=== PATIENT | female | born 1990 | race Caucasian/White ===

== ENCOUNTER 2018-07-23 09:03 | Day surgery (SDC) | payer BC ==
--- NOTE | 2018-07-14 01:13 | HP ---
PREOPERATIVE HISTORY AND PHYSICAL: DATE OF OFFICE VISIT: 07/13/18 DATE OF SURGERY: 07/23/18 ATTENDING SURGEON: Dr. Maru Bocanegra.* (DICTATED BY RIC ARECHIGA) PROCEDURE: Left knee arthroscopy, anterior cruciate ligament reconstruction with autograft. CHIEF COMPLAINT: Left knee pain. HISTORY OF PRESENT ILLNESS: Syl is a 27-year-old female who presents to the clinic for left knee pain and instability due to an ACL tear. She has failed conservative measures and therefore agreed to undergo a left knee arthroscopy, anterior cruciate ligament reconstruction with autograft with Dr. Bocanegra on . PAST MEDICAL HISTORY: History of asthma, depression, anxiety, obstructive sleep apnea, migraines. PAST SURGICAL HISTORY: [place] teeth extraction. Denies prior complications with anesthesia. MEDICATIONS: 1. Melatonin 1 by mouth at bedtime. 2. Ativan 0.5 mg 1 by mouth as directed. 3. Sertraline 50 mg 1 by mouth daily. 4. Oxistat 1% as directed. 5. QNASL 80 mcg per ACT as needed. 6. Vitamin D3 one tab by mouth daily. ALLERGIES: No known drug allergies. FAMILY HISTORY: Positive for diabetes, heart disease, hypertension, thyroid disease, and breast cancer. Denies family history of DVT or PE. SOCIAL HISTORY: She lives with her roommate. 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 She reports occasional alcohol consumption. She denies tobacco use. She is right-hand dominant. REVIEW OF SYSTEMS: A 14-point review of systems was reviewed with the patient. Positive for current complaint; otherwise, negative. Denies fevers, chills, chest pain, shortness of breath, history of DVT or PE, history of bleeding disorder. PHYSICAL EXAMINATION GENERAL: A 27-year-old well-developed, well-nourished female, in no acute distress. Alert and oriented x3. VITAL SIGNS: Height 60, weight 115. Pulse 64, blood pressure 104/71, respiratory rate 16. BMI 22.5. HEENT: Normocephalic, atraumatic. PERRLA. Throat clear. NECK: Supple. PULMONARY: Lungs are clear to auscultation bilaterally. No wheezing, rhonchi, or rales. CARDIO: Regular rate and rhythm. S1, S2. No murmurs, gallops, or rubs. No edema. ABDOMEN: Positive bowel sounds, soft, nontender. NEURO: Alert and oriented x3. Cranial nerves grossly intact. Sensation intact to light touch. MUSCULOSKELETAL: Left lower extremity, skin is intact. No warmth or erythema. Nontender to palpation. Range of motion 0 to 140. Stable with varus and valgus stress. 2B Ashok. Negative posterior drawer. Calf soft, nontender. +5/5 strength to ankle dorsiflexion and plantarflexion. +2 DP pulse. Sensation intact to light touch distally. STUDIES: MRI of the left knee revealed complete ACL rupture, the menisci appear intact. IMPRESSION: Left knee ACL tear. PLAN: The patient is scheduled to undergo a left knee arthroscopy and anterior cruciate ligament reconstruction with autograft with Dr. Bocanegra on 07/23/18. She would like to undergo BTB autograft. Percocet will be used for postop pain management and Keflex for antibiotics. She is thinking about flying out a few days after surgery to [place] in which case, she will require Lovenox for 10 days postoperatively. She will follow up 10 to 14 days postop for followup and suture removal. RIC ARECHIGA [id number]/[facility] #: [id number] MTDD
[~2018-07-23 09:03] MED LIST: Buffered Lidocaine 0.9% SYRIN* 5 ML/SYR SYRINGE INTRADERM ONE; Dexamethasone IV* 4 MG/ML 1 ML (4 MG) IV SLOW PU ONE; Dexamethasone IV* 4 MG/ML 1 ML (4 MG) ONE; Famotidine IV* 10 MG/ML 2 ML (20 mg) IV ONE; Famotidine IV* 10 MG/ML 2 ML (20 mg) ONE; Lactated Ringers 1000 ML Bag* 1,000 ML IV SCH; Lidocaine 2% PF * 5 ML VIAL ONE; Midazolam* 1 MG/ML 5 ML VIAL (5 MG) ONE; Propofol* 10 MG/ML 20 ML BTL ONE; fentaNYL* 50 MCG/ML 5 ML VIAL (250 MCG VIAL) ONE
[2018-07-23] MEDS ORDERED: ceFAZolin 2 GM PREMIX in ORs 2 GM/50 ML BAG IVPB ONE (09:17)
[2018-07-23] MEDS ORDERED: Scopolamine 1.5 mg* PATCH ONE (09:41)
[2018-07-23] MEDS ORDERED: Scopolamine 1.5 mg* PATCH TRANSDERM SCH (10:00)
[2018-07-23] MEDS ORDERED: Lidocaine 1% MPF wEPI 200,000* 30 ML SDV ONE (10:27)
[2018-07-23] MEDS ORDERED: ROPIVACAINE 5 MG/ML 30 ML BTL (0.5%) ONE (10:27)
[2018-07-23] MEDS ORDERED: Ondansetron INJ* 2 MG/ML VIAL ONE (11:51)
[2018-07-23] MEDS ORDERED: oxyCODONE/Acetamin 5/325 MG* TAB PO PRN (11:53)
[2018-07-23] MEDS ORDERED: PROCHLORPERAZINE INJ 5 MG/ML 2 ML VIAL IV PRN (11:53)
[2018-07-23] MEDS ORDERED: Ketorolac INJ* 30 MG/ML 1 ML VIAL IV PRN (11:53)
[2018-07-23] MEDS ORDERED: Acetaminophen TAB* 325 MG PO PRN (11:53)
[2018-07-23] MEDS ORDERED: DiMENhydriNATE IV* 50 MG/ML VIAL IV PUSH PRN (11:53)
[2018-07-23] MEDS ORDERED: Naloxone* 0.4 MG/ML 1 ML VIAL IV PRN (11:53)
[2018-07-23] MEDS ORDERED: fentaNYL* 50 MCG/ML 2 ML VIAL (100 MCG VIAL) IV PRN (11:53)
[2018-07-23 13:10] VITALS: BP 115/69
--- NOTE | 2018-08-05 03:59 | OP ---
CC: PCP OPERATIVE REPORT: DATE OF OPERATION: 07/23/18 DATE OF : [birth year] SURGEON: Maru Bocanegra MD INCUBATOR OPERATOR: RIC Love ANESTHESIOLOGIST: Dr. Polo. PRE-OP DIAGNOSIS: Left knee grade 3 anterior cruciate ligament rupture. POST-OP DIAGNOSIS: Left knee grade 3 anterior cruciate ligament rupture with medial meniscus tear. OPERATIVE PROCEDURES: 1. Left knee arthroscopy with ACL reconstruction using BTB autograft. 2. Medial meniscus rasping. COMPLICATIONS: None. ESTIMATED BLOOD LOSS: Minimal. INDICATIONS: Syl Saavedra is a 27-year-old female who sustained an injury to her knee. Previously, she had failed conservative management and elected to proceed with surgical treatment. Risks and benefits of surgery were discussed at length including but not limited to bleeding; infection; damage to nerves, vessels, surrounding structures; wound nonhealing; persistent pain; need for further surgery; scaring; stiffness; incomplete relief of symptoms; and risks of anesthesia. DESCRIPTION OF PROCEDURE: The patient was greeted in the preoperative area by the attending surgeon. Correct extremity was marked. Consent was confirmed. The patient brought back to the operating table. She was placed in the supine position on the operating room table. She then underwent general anesthesia and LMA intubation, after which she was properly positioned in the bed. Lateral post was positioned. An unsterile tourniquet was placed high on the proximal thigh, then beanbag was placed to get the knee at 90 degrees. The left leg was then prepped and draped in the usual sterile fashion beginning with chlorhexidine, soap, scrub, and alcohol wipe and a final prep with ChloraPrep. After appropriate surgical pause indicating site, side, procedure, and administration of antibiotics; the knee was intraarticularly injected with 1% lidocaine with epi. An Esmarch was used to exsanguinate the limb and the tourniquet inflated to 250 mmHg. Total tourniquet time was 19 minutes. After which a midline incision over the patella was then made with a 15 blade. Soft tissues were carefully dissected to expose the peritenon which was identified and saved for later closure. The patellar tendon was identified. The center 10 mm was then harvested using a 10 blade. After the soft tissue was harvested , the bone block was harvested. Femoral bone block was then harvested off the patella to allow for a 9 x 23 mm bone block, distallyvthe tibial bone block was harvested for 10 x 30 mm. This was then harvested using a sagittal saw and osteotome. Once this was removed, it was prepared on the back table by the group fitness assistant department head. Meanwhile, the tourniquet was deflated. The tendon was closed with 0- Vicryl in an interrupted fashion with care to not overtighten to cause patella baja. After this was completed, attention was directed to arthroscopy. A lateral portal was made through the capsule. The scope was positioned into the joint. Joint was examined. There was no loose tear in the ACL. There was synovitis anteriorly. The anteromedial portal was made using a 18-gauge needle for localization. The shaver was used to debride the remaining capsule. The ACL was found to be scarred to the PCL. The head was found to be a grade 3 rupture. Patellofemoral joint had grade 0 to 1 changes. The medial and lateral gutters were intact without any loose debris. Medial compartment was examined, had grade 0 changes at the medial femoral condyle and medial plateau. The meniscus appeared to be intact, there was an undersurface tear posteromedially. The decision was made that it was likely stable and did not require a stitch, but we decided to rasp it to allow for healing. This was then rasped using arthroscopic meniscal rasp. Attention was then directed to the lateral compartment with the knee placed in a [id number] position. The lateral femoral condyle and lateral plateau had grade 0 changes. Lateral meniscus had no obvious fraying. It was probed and found to be intact. Attention was then directed to the ACL. The knee was placed in 90 degrees of flexion. Attention was directed to the lateral femoral wall. Patricia and biters were used to remove the ACL stump. The electrocautery device was used to expose and skeletonize the lateral wall. Once this was done, the starting awl was used to usama the provisional start point for pivot hole. This was visualized by moving the scope to the anteromedial portal. This was visualized and used as a reference point. The scope was then positioned, was brought back to the lateral portal. Attention was directed to the tibial tunnel. Biters and patricia were used to debride back the tibial ACL footprint. Once this was determined, a tip-to-tip guide was then placed, it was set to about 50 degrees. The tibial tunnel was then drilled using the guidewire in the center of the ACL footprint. Once this was confirmed, this was overdrilled with a size 10 mm low - profile reamer. All excess bone debris was removed. The tunnel was carefully rasped to offer passage of the graft. Tunnel was visualized and found to be in good position. Care was taken to prevent fluid egress. Attention was directed to the femoral tunnel. The knee was then placed in hyperflexion and the Walter and Nephew straight guides were placed in the center of the footprint using the pivot hole as the reference point. The Beath pin was then passed through the anteromedial portal in the center of the femoral footprint. This was placed through the center of the footprint out through the lateral femoral condyle, the IT band and the skin. The size 9 mm low-profile reamer was used to drill to a depth of about 25 mm. All excess bone and debris were removed. The tunnel was examined and found to have a good back wall and then properly positioned. The excess debris was removed. The tunnel was then notched. The #2 Ethibond suture was then passed through the island of the Beath pin and passed through the skin. The sutures were then passed in an anterior layered fashion through the tibial tunnel. At this point, the graft was brought back from the back table that was wrapped in a saline- soaked gauze and passed through the tibial tunnel all the way to the femoral tunnel and this was confirmed under arthroscopic and under direct visualization. Once it was well seated, tension on the femoral and tibial suture, a nitinol guide was placed in the femoral tunnel and the femoral tunnel was secured using a 7 x 20 mm screw. The graft was visualized and found to be in good position. Knee was placed to full extension, there was no evidence of impingement anteriorly. The knee was then cycled approximately 15 times to remove any creep from the graft and was found to be in good position. The scope was then brought to the joint and the joint was examined and the graft was found in good position. The knee was then taken to about 20 degrees of flexion with tension on the tibial sutures. A size 9 x 25 mm screw was used. SoftSilk screw was used to secure the tibial bone block. This was placed with excellent purchase. The knee was taken through full range of motion and Ashok was assessed and found to stable. The scope was positioned back to the joint. The graft was found to be in good position. The final images were obtained, the knee was sterilely lavaged. The wounds were copiously irrigated with sterile saline. The excess bone graft was then placed in the patellar tunnel and oversewn with 0-Vicryl. Remaining bone graft was placed in the tibial tunnel. The peritenon was then closed with 2-0 Vicryl in a running fashion. The wound was irrigated again. The skin was closed in layers with 2-0 Vicryl and 3-0 Monocryl. Sterile dressings were applied. Cryo/ Cuff and a hinged knee brace was applied, set to 0 to 90 degrees, locked in extension. She was awoken from anesthesia and transferred to PACU in stable condition. POSTOPERATIVE PLAN: She will be partial weightbearing. Range of motion 0 to 90 degrees. She with start PT this week. She will be discharged on pain medications and antibiotics. DVT prophylaxis considered but deferred due to no previous personal or family history. I will see the patient back in 6 to 8 days. [id number]/[facility] #: [id number] DRE
== END 2018-07-23 13:05 | disposition home or self-care (01) ==
LOC: OREAST 09:03
PROVIDERS: ATTEND Orthopaedic Surgery
DX: S83.512A Sprain of anterior cruciate ligament of left knee, initial encounter (principal); S83.242A Other tear of medial meniscus, current injury, left knee, initial encounter; X58.XXXA Exposure to other specified factors, initial encounter; Y92.9 Unspecified place or not applicable; J45.909 Unspecified asthma, uncomplicated; F41.8 Other specified anxiety disorders; G47.33 Obstructive sleep apnea (adult) (pediatric); G43.909 Migraine, unspecified, not intractable, without status migrainosus
CPT/HCPCS: 81025; 88304; A9270-GY; C1713; J0690; J1100; J2001; J2250; J2405; J2704; J2795; J3010

== ENCOUNTER 2019-08-06 10:29 | Day surgery (SDC) | payer BC ==
[~2019-08-06 10:29] MED LIST changes: -Buffered Lidocaine 0.9% SYRIN* 5 ML/SYR SYRINGE INTRADERM ONE; +Buffered Lidocaine 1% SYRIN* 1 ML/SYRINGE INTRADERM ONE; -Dexamethasone IV* 4 MG/ML 1 ML (4 MG) IV SLOW PU ONE; -Dexamethasone IV* 4 MG/ML 1 ML (4 MG) ONE; -Famotidine IV* 10 MG/ML 2 ML (20 mg) IV ONE; -Famotidine IV* 10 MG/ML 2 ML (20 mg) ONE; -Lidocaine 2% PF * 5 ML VIAL ONE; -Midazolam* 1 MG/ML 5 ML VIAL (5 MG) ONE; -Propofol* 10 MG/ML 20 ML BTL ONE; +ceFAZolin 2 GM PREMIX in ORs 2 GM/50 ML BAG ONE; -fentaNYL* 50 MCG/ML 5 ML VIAL (250 MCG VIAL) ONE
[2019-08-06] MEDS ORDERED: Lidocaine 2% PF * 5 ML VIAL ONE (11:03)
[2019-08-06] MEDS ORDERED: Midazolam* 1 MG/ML 2 ML VIAL (2 MG) ONE (11:03)
[2019-08-06] MEDS ORDERED: Propofol* 10 MG/ML 20 ML BTL ONE (11:03)
[2019-08-06] MEDS ORDERED: Lidocaine 1% w EPI 1:200,000* SDV 30 ML VIAL ONE (12:24)
[2019-08-06] MEDS ORDERED: Ropivacaine 0.2% * 2 MG/ML VIAL ONE (12:25)
[2019-08-06] MEDS ORDERED: Lidocaine 1% w EPI 1:100,000* MDV 20 ML VIAL ONE (12:25)
[2019-08-06] MEDS ORDERED: Phenylephrine 40 MCG/ML SYRINGE ONE (12:53)
[2019-08-06] MEDS ORDERED: fentaNYL* 50 MCG/ML 2 ML VIAL (100 MCG VIAL) ONE (13:00)
[2019-08-06] MEDS ORDERED: Ondansetron INJ* 2 MG/ML VIAL ONE (13:06)
[2019-08-06] MEDS ORDERED: Metoclopramide IV* 5 MG/ML 2 ML VIAL ONE (13:06)
[2019-08-06] MEDS ORDERED: Dexamethasone IV* 4 MG/ML 1 ML (4 MG) ONE (13:06)
[2019-08-06] MEDS ORDERED: Ketorolac INJ* 30 MG/ML 1 ML VIAL ONE (13:06)
[2019-08-06] MEDS ORDERED: Naloxone* 0.4 MG/ML 1 ML VIAL IV PRN (13:20)
[2019-08-06] MEDS ORDERED: oxyCODONE TAB* 5 MG TAB PO PRN (13:20)
[2019-08-06] MEDS ORDERED: DiMENhydriNATE IV* 50 MG/ML VIAL IV PUSH PRN (13:20)
[2019-08-06] MEDS ORDERED: fentaNYL* 50 MCG/ML 2 ML VIAL (100 MCG VIAL) IV PRN (13:20)
[2019-08-06 15:09] VITALS: BP 115/82
--- NOTE | 2019-08-08 11:52 | OP ---
DATE OF OPERATION: 08/06/19 [facility] DATE OF : [birth year] ATTENDING SURGEON: Maru Bocanegra MD SLEEP SCIENTIST: RIC Vallejo. Yasir was used for the meniscus repair portion of the case, only to help with doing the meniscus repair. ANESTHESIOLOGIST: Dr. Abreu. PRE-OP DIAGNOSES: Left knee medial meniscus tear and a previous repair to ACL reconstruction. POST-OP DIAGNOSES: Left knee medial meniscus tear and a significant synovitis and lysis of adhesions. OPERATIVE PROCEDURE: Left knee arthroscopy, possible partial meniscus repair. COMPLICATIONS: None. ESTIMATED BLOOD LOSS: Minimal. INDICATIONS: Syl Saavedra is a 28-year-old female who had a previous ACL reconstruction approximately a year ago. We did rasp her medial meniscus in the hopes that this would heal, but she had persistent symptoms and could not get back to activities. Her knee was grossly stable. The MRI confirmed that there were no issues with ACL placement. She has failed conservative management. After extensive discussion of risks and benefits of operative versus nonoperative treatment, she has elected to proceeded with surgical treatment. We did discuss that this could be a non-repairable tear and she would need a partial meniscectomy, she wanted to plan to repair it if possible. Risks include but not limited to bleeding; infection; damage to nerves, vessels, surrounding structures; wound nonhealing; persistent pain; need for surgery; scaring; stiffness; incomplete relief of symptoms; risks of anesthesia ; and risk of DVT. She has elected to proceeded. DESCRIPTION OF PROCEDURE: The patient was greeted in the preoperative area by the attending surgeon. Consent was confirmed. The patient was brought back to the operating suite. She was placed in the supine position on the operating room table and then underwent general anesthesia. An unsterile tourniquet was placed high on the proximal thigh. The lateral post was positioned. The left lower extremity was then prepped and draped in the usual sterile fashion beginning with chlorhexidine soap, scrub, and alcohol wipe and a final prep with ChloraPrep. After appropriate surgical pause indicating site, side, procedure, administration of antibiotics, the knee was intra-articularly injected with 1% lidocaine with epi. The anterolateral portal was made sharp with #11 blade. Scope was introduced into the joint. There was abundant prepatellar scar due to a previous ACL. After the anteromedial portal was placed, the electrocautery device was used to do lysis of adhesions about the prepatellar as well as the medial and lateral gutters. There was evidence of this rubbing against the medial femoral condyle. The knee cap was not even able to be visualized to start with. After this was done carefully, the knee was able to be better mobilized. The ACL was intact and found to be nice and stable. PCL was intact. The medial compartment was examined, there were grade 0 to 1 changes in the medial femoral condyle, medial plateau. The meniscus was then probed. This was a ikrnyrl-loz-qgcwlpe tear. This was longitudinal. It was in the border between the red and white junction. Because of the patient's age and because of the discussions prior to surgery, we elected to proceed with repair. The rasp was used to gently rasp both edges of the tear. Then using the previously placed portals, the FAST-FIX 360 were then used to secure. One was placed to the medial portal, one was placed to the lateral portal, and one was placed down the superior aspect and one on the inferior aspect to try to prevent it from buckling. This secured the tear quite well. The knee was taken through full range of motion and there was no evidence of the sutures becoming loose or breaking. Attention was directed to the lateral compartment. There were grade 0 changes to the lateral femoral condyle, lateral plateau. The lateral meniscus was intact. After the knee was thoroughly lavaged and removed of any loose debris, final images were obtained. The wounds were copiously irrigated with sterile saline. The portals were closed with 3-0 nylon in an interrupted fashion. The portals were injected with 0.2% ropivacaine as well as the joint intra-articularly. Sterile dressings were applied, a Cryo/Cuff, and a hinge knee brace which was locked at 0. Range of motion 0 to 90 degrees. She was awoken from anesthesia and transferred to PACU in stable condition. POSTOPERATIVE PLAN: She will be nonweightbearing for 4 weeks, discharged on pain medications and antibiotics due to revision surgery or due to a second surgery. DVT prophylaxis considered but deferred due to no previous personal or family history. I will see the patient back in 10 to 14 days. [id number]/[facility] #: [id number] [facility]
== END 2019-08-06 15:36 | disposition home or self-care (01) ==
LOC: OR 10:29
PROVIDERS: ATTEND Orthopaedic Surgery
DX: S83.242D Other tear of medial meniscus, current injury, left knee, subsequent encounter (principal); M25.562 Pain in left knee; G47.33 Obstructive sleep apnea (adult) (pediatric); I95.9 Hypotension, unspecified; F41.0 Panic disorder [episodic paroxysmal anxiety]; X58.XXXD Exposure to other specified factors, subsequent encounter; Y92.9 Unspecified place or not applicable
CPT/HCPCS: 81025; J0690; J1100; J1885; J2001; J2250; J2405; J2704; J2765; J2795; J3010

== ENCOUNTER 2020-10-23 18:05 | Inpatient (IN) ==
[2020-10-23 19:15] LABS: Urine Appearance Clear; Urine Bilirubin Negative (Negative); Urine Blood 1+ (Negative); Urine Color Straw; Urine Glucose Negative (Negative); Urine Ketones Negative (Negative); Urine Nitrite Negative (Negative); Urine Protein Negative (Negative); Urine Specific Gravity 1.011 (1.010-1.030); Urine Urobilinogen Negative (Negative)
[2020-10-23 19:22] LABS: Urine Bacteria 1+ (Absent); Urine Red Blood Cell Trace(0-2/hpf) (Absent); Urine Squamous Epithelial Cell Present (Absent); Urine White Blood Cell Absent (Absent)
[2020-10-23 19:29] LABS: ABS Eosinophils 0.3 10^3/ul (0-0.6); ABS Lymphocytes 1.4 10^3/ul (1.0-4.8); ABS Monocytes 0.5 10^3/ul (0-0.8); ABS Neutrophils 4.7 10^3/ul (1.5-7.7); Eosinophil % 4.3 %; Hematocrit 42 % (35-47); Hemoglobin 14.6 g/dL (12.0-16.0); Lymphocyte % 20.5 %; Mean Corpuscular HGB Conc 35 g/dL (31-36); Mean Corpuscular Hemoglobin 33 pg (27-31); Mean Corpuscular Volume 95 fL (80-97); Mean Platelet Volume 7.9 fL (7.4-10.4); Platelet Count 274 10^3/uL (150-450); Red Blood Count 4.46 10^6 /uL (3.70-4.87); Red Cell Distribution Width 12 % (10-15); White Blood Count 6.9 10^3/uL (3.5-10.8)
[2020-10-23 19:58] LABS: ALT 9 U/L (7-52); Albumin 4.2 g/dL (3.2-5.2); Albumin/Globulin Ratio 1.4 (1-3); Alcohol, S < 10 mg/dL (<10); Alkaline Phosphatase 53 U/L (34-104); BUN/Creatinine Ratio 20.7 (8-20); Blood Urea Nitrogen 17 mg/dL (6-24); CO2 Carbon Dioxide 28 mmol/L (22-32); Calcium 9.5 mg/dL (8.6-10.3); Chloride 103 mmol/L (101-111); EGFR Non-African American 81.9 (>60); Glucose 103 mg/dL (70-100); Salicylate < 2.50 mg/dL (<30); Sodium 137 mmol/L (135-145); Total Protein 7.2 g/dL (6.4-8.9)
[2020-10-23 20:00] LABS: Urine Benzodiazepine Screen None Detected (None Detect); Urine Cannabinoids Screen None Detected (None Detect); Urine Opiates Screen None Detected (None Detect)
[2020-10-23 20:03] LABS: TSH Ultra Thyroid Stim Horm 1.97 mcIU/mL (0.34-5.60)
[2020-10-23 20:08] LABS: AST 18 U/L (13-39); Anion Gap 6 mmol/L (2-11); Potassium 3.8 mmol/L (3.5-5.0)
[2020-10-23 20:29] LABS: Acetaminophen < 10 mcg/mL
[2020-10-23] MEDS ORDERED: Al Hydrox/Mg Hydrox/Simet LIQ 30 ML UDC PO PRN (23:17)
[2020-10-24] MEDS: Vitamin THERAPEUTIC TAB PO SCH (08:42)
[2020-10-25] MEDS: Vitamin THERAPEUTIC TAB PO SCH (07:54)
[2020-10-26] MEDS: Vitamin THERAPEUTIC TAB PO SCH (09:24)
[2020-10-26] MEDS: Fluticasone NASAL SPRAY 50MCG 16 gm SPRAY BTL BOTH NARES SCH (21:14)
[2020-10-27] MEDS: Fluticasone NASAL SPRAY 50MCG 16 gm SPRAY BTL BOTH NARES SCH (10:13)
[2020-10-27] MEDS: Vitamin THERAPEUTIC TAB PO SCH (10:13)
[2020-10-28 08:18] VITALS: BP 115/82
[2020-10-28 08:30] LABS: HDL Cholesterol 61.6 mg/dL
[2020-10-28] MEDS: Fluticasone NASAL SPRAY 50MCG 16 gm SPRAY BTL BOTH NARES SCH (09:20)
[2020-10-28] MEDS: Vitamin THERAPEUTIC TAB PO SCH (09:20)
== END 2020-10-28 12:00 | disposition home or self-care (01) | DRG 751 ==
LOC: ED 18:05 → BSU 21:22
PROVIDERS: ADMIT Psychiatry & Neurology Addiction Psychiatry; ATTEND Psychiatry & Neurology Addiction Psychiatry